=== PATIENT | female | born 1970 | race Caucasian/White ===

== ENCOUNTER 2016-06-17 13:14 | Emergency (ER) | payer OTHER ==
[~2016-06-17] VITALS: Ht 170.2 cm; Wt 110.7 kg
[2016-06-17] MEDS ORDERED: TYLE500T78 PO (13:43)
[2016-06-17] MEDS ORDERED: VENL75CA47 PO (13:43)
[2016-06-17] MEDS ORDERED: diphenhydrAMINE INJ 50MG/ML VIAL (J1200) IV STA (17:06)
[2016-06-17] MEDS ORDERED: NS 1,000 ML IV ONE (17:15)
[2016-06-17] MEDS ORDERED: METOCLOPRAMIDE INJ 10MG/2ML VIAL (J2765) IV ONE (17:15)
[2016-06-17 18:19] LABS: BASO % 0.4 % (0.0-1.0); EOS # 0.4 K/mm3 (0.0-0.50); EOS % 4.5 % (0.0-3.0); LARGE UNSTAINED CELL # 0.1 K/mm3 (0.0-0.4); LARGE UNSTAINED CELL % 1.5 % (0.0-4.0); LYMPH # 2.9 K/mm3 (1.5-4.5); LYMPH % 35.9 % (24.0-44.0); MEAN CORPUSCULAR HGB CONC 33.4 g/dl (32.0-36.5); MEAN CORPUSCULAR VOLUME 89.8 fl (80.0-96.0); MONO # 0.3 K/mm3 (0.0-0.8); MONO % 4.2 % (0.0-5.0); NEUTROPHILS # 4.2 K/mm3 (1.8-7.7); NEUTROPHILS % 53.6 % (36.0-66.0); PLATELET COUNT, AUTOMATED 332 k/mm3 (150-450); RED CELL DISTRIBUTION WIDTH 12.4 % (11.5-14.5); WHITE BLOOD COUNT 7.8 K/mm3 (4.0-10.0)
[2016-06-17 18:25] LABS: INR 0.97
[2016-06-17 18:33] LABS: ANION GAP 7 MEQ/L (8-16); BLOOD UREA NITROGEN 9 MG/DL (7-18); CALCIUM LEVEL 8.9 MG/DL (8.5-10.1); CARBON DIOXIDE LEVEL 29 MEQ/L (21-32); CHLORIDE LEVEL 107 MEQ/L (98-107); CREATININE FOR GFR 0.73 MG/DL (0.55-1.02); GLOMERULAR FILTRATION RATE > 60.0 (>58); GLUCOSE, FASTING 91 MG/DL (70-105); POTASSIUM SERUM 4.2 MEQ/L (3.5-5.1); SODIUM LEVEL 143 MEQ/L (136-145)
--- NOTE | 2016-06-17 19:13 | REP ---
Head CT without contrast: History: Severe headache. History arachnoid cyst. Comparison MRI study of the brain is from 06/07/2015. CT findings: There is some enlargement of the foramen magnum noted associated with the subarachnoid cyst seen at the craniocervical junction extending to the right of the medulla and upper cervical cord. This appears unchanged from the subarachnoid cyst seen on 06/07/2015 prior MRI study. There is no evidence of hydrocephalous or other extra-axial fluid collection intracranially. Lawson-white differentiation pattern is intact. There is no evidence of intracranial hemorrhage. No mass or midline shift is seen. Bone window settings demonstrate an otherwise intact bony calvarium. Impression: Subarachnoid cyst again seen at the craniocervical junction, extending to the right of the medulla and upper cervical cord junction; unchanged from the comparison MRI study 06/07/2015. No acute intracranial abnormality. Signed by Deangelo Martinez MD 06/17/2016 07:47 P
[2016-06-17 20:06] VITALS: BP 161/94
== END 2016-06-17 20:07 | disposition home or self-care (01) ==
LOC: M ED 16:01
DX: G93.0 Cerebral cysts (principal); R51 Headache; I25.10 Atherosclerotic heart disease of native coronary artery without angina pectoris; E11.9 Type 2 diabetes mellitus without complications; I10 Essential (primary) hypertension; Z79.899 Other long term (current) drug therapy
CPT/HCPCS: 36415; 70450; 80048; 85025; 85610; 85730; 96374; 96375; 99282; J1200; J2765

== ENCOUNTER → 2017-01-21 | Outpatient (CLI) | payer OTHER ==
[~2017-01-21] MED LIST: TYLE500T78 PO; VENL75CA47 PO
--- NOTE | 2017-02-01 07:40 | SLEEPCENT ---
DATE OF PROCEDURE: 01/21/2017 REFERRING PROVIDER: Dr. Candice Cantu INTERPRETATION: Nocturnal polysomnography was performed for evaluation of sleep apnea syndrome symptoms consisting of excessive daytime sleepiness, insomnia, snoring, observed apnea, gasping respirations, morning headaches, and nonrestorative sleep. A total of 8 hours and 15 minutes of data was reviewed with 418 minutes of sleep identified. Sleep latency was 31 minutes. Rapid eye movement (REM) latency was 131 minutes. No slow wave sleep was observed. Sleep efficiency was 85.6%. EKG showed normal sinus rhythm with an average heart rate of 70 beats per minute. Speeding and slowing was noted surrounding some respiratory events. No epileptiform discharge observed. There were 189 respiratory events identified of 10 seconds in duration or longer for an apnea-hypopnea index (AHI) of 27.1. The events were predominantly obstructive hypopneas/apneas. Respiratory effort-related arousal (RERA) index was 1.1 giving a total respiratory disturbance index (RDI) of 28.2. Mean oxygen saturation for the study was 92% with a minimum recorded value of 82%. Arousal index was 26.7 with over half the arousals respiratory related. Periodic limb movement index was elevated at 32.7. IMPRESSION: 1. Obstructive sleep apnea, moderate/severe. 2. Periodic limb movements, moderate. RECOMMENDATIONS: Recommend the patient return to the sleep disorder center for determination of pressure therapy. Pending that intervention, alcohol and sedative usage should be avoided and care should be taken while operating motor vehicles. [facility]
== END ==
LOC: M SLEEP 19:46
PROVIDERS: ATTEND Internal Medicine Pulmonary Disease
DX: G47.30 Sleep apnea, unspecified (principal)

== ENCOUNTER → 2017-02-28 | Outpatient (CLI) | payer OTHER | LOC: M SLEEP 20:04 | PROVIDERS: ATTEND Internal Medicine Pulmonary Disease | DX: G47.33 Obstructive sleep apnea (adult) (pediatric) (principal) ==

== ENCOUNTER 2017-07-30 11:37 | Emergency (ER) | payer OTHER ==
[2017-07-30] MEDS: predniSONE 20 MG TAB PO (13:07)
[2017-07-30] MEDS: FAMOTIDINE 20 MG TAB PO (13:07)
== END 2017-07-30 13:16 | disposition home or self-care (01) ==
LOC: M ED 11:37
DX: L29.9 Pruritus, unspecified (principal); T78.40XA Allergy, unspecified, initial encounter; F41.9 Anxiety disorder, unspecified; Z88.8 Allergy status to other drugs, medicaments and biological substances; Z91.018 Allergy to other foods; Z79.899 Other long term (current) drug therapy
CPT/HCPCS: 99283

== ENCOUNTER 2018-01-14 11:20 | Emergency (ER) | payer OTHER ==
[2018-01-14] MEDS: TETRACAINE 0.5% OPHTH SOLN 4ML OS (11:42)
== END 2018-01-14 14:46 | disposition home or self-care (01) ==
LOC: M ED 11:20
DX: H43.392 Other vitreous opacities, left eye (principal); K21.9 Gastro-esophageal reflux disease without esophagitis; F41.9 Anxiety disorder, unspecified; Z79.899 Other long term (current) drug therapy; Z88.8 Allergy status to other drugs, medicaments and biological substances; Z91.018 Allergy to other foods
CPT/HCPCS: 99282

== ENCOUNTER → 2022-05-01 | Outpatient (CLI) | payer OTHER ==
[~2022-05-01] MED LIST changes: +BENA25TA10 PO; +FISH100049 PO; +FLUTISP; +OMEP1CAP73; +PEPC1TAB5 PO; +PRED20TA PO; +VITA100066 PO
== END ==
LOC: M WHC 13:45
PROVIDERS: ATTEND Student in an Organized Health Care Education/Training Program
DX: Z12.31 Encounter for screening mammogram for malignant neoplasm of breast (principal); N63.20 Unspecified lump in the left breast, unspecified quadrant; R92.2 Inconclusive mammogram

== ENCOUNTER → 2022-05-29 | Outpatient (CLI) | payer OTHER | LOC: M WHC 10:41 | PROVIDERS: ATTEND Student in an Organized Health Care Education/Training Program | DX: R92.8 Other abnormal and inconclusive findings on diagnostic imaging of breast (principal); N63.23 Unspecified lump in the left breast, lower outer quadrant; N63.21 Unspecified lump in the left breast, upper outer quadrant; Z85.3 Personal history of malignant neoplasm of breast ==

== ENCOUNTER → 2023-04-28 | Outpatient (CLI) | payer OTHER | LOC: M WHC 14:41 | PROVIDERS: ATTEND Nurse Practitioner Primary Care | DX: Z12.31 Encounter for screening mammogram for malignant neoplasm of breast (principal) | CPT/HCPCS: 77066; G0279 ==